=== PATIENT | female | born 1955 ===

== ENCOUNTER 2016-08-30 06:35 | Day surgery (SDC) | payer BC ==
[~2016-08-30] VITALS: Ht 154.9 cm; Wt 50.0 kg
[~2016-08-30 06:35] MED LIST: AMLO10TA82 PO; CHOL200018 PO; LACTATED RINGERS 1,000 ML IV SCH; METO-270 PO; METO25TA2 PO; MINO100T PO; NFLOSA25TA PO; SODIUM CHLORIDE FLUSH 3 ML SYR IV PRN
--- OUTSIDE RECORDS SUMMARY | 2016-08-30 06:39 | XMS REPORT | Continuity of Care Document ---
Author Author [facility] Organization [facility] Address Unknown Phone Unavailable Care Team Providers Care Clinical Science Consultant Name Role Phone Carlos Ward PCP [phone] Source Comments Some departments are not documenting in the electronic medical record. If you do not see the information that you expected, contact Release of Information in the Health Information Management department at [phone] for further assistance in locating additional records.[facility] Active Allergies and Adverse Reactions Allergen Noted Date Severity Reactions Comments Lisinopril 10/07/2015 Low COUGH Current Medications Prescription Sig. Disp. Refills Start End Date Status Date furosemide (LASIX) 40 mg Take 40 mg by mouth Active tablet daily. amLODIPine (NORVASC) 10 Take 10 mg by mouth Active mg tablet daily. atenolol (TENORMIN) 50 mg Take 50 mg by mouth Active tablet daily. losartan (COZAAR) 50 mg Take 50 mg by mouth Active tablet daily. insulin detemir(+) Inject 18 Units into Active (LEVEMIR) 100 unit/mL area(s) as directed. vandana Active Problems Problem Noted Date End stage renal disease (HCC) 11/01/2015 Hypertension 11/01/2015 DM (diabetes mellitus) type II controlled with renal manifestation (HCC) 03/2016 Most Recent Encounters Date Type Specialty Providers Description 08/29/2016 Documentation Transplant Surgery Virginia Corley 08/14/2016 Scan Only Transplant Surgery Sonia Reynoso 07/24/2016 Scan Only Transplant Surgery Sonia Reynoso 07/17/2016 Scan Only Transplant Surgery Sonia Reynoso 07/17/2016 Telephone Transplant Surgery Leida Collazo RN Kidney Evaluation 06/07/2016 Documentation Transplant Surgery Kayla Costa Social History Tobacco Use Types Packs/Day Years Used Date Never Smoker Alcohol Use Drinks/Week oz/Week Comments No quit in 2011 Last Filed Vital Signs Vital Sign Reading Time Taken Blood Pressure 140/78 10/12/2015 8:53 AM [employer] Pulse 62 10/12/2015 8:53 AM [employer] Temperature - - Respiratory Rate - - Height 1.549 m (5' 1") 10/12/2015 8:53 AM [employer] Weight 51.71 kg (114 lb) 10/12/2015 8:53 AM [employer] Body Mass Index 21.55 10/12/2015 8:53 AM [employer] Oxygen Saturation 90% 10/12/2015 8:53 AM [employer] Plan of Care Health Maintenance Due Date Last Done Comments Hepatitis C Screening 1957 Physical (Comprehensive) 1964 Exam Pertussis Vaccine 1968 Tetanus Vaccine 1974 Dilated Eye Exam 1975 Foot Exam 1975 Hba1c 1975 Microalbumin 1975 Pneumonia Vaccine (Dm) 1975 Cervical Cancer Screening 1978 Breast Cancer Screening 1997 Colorectal Cancer 2007 Screening Influenza Vaccine 04/26/2016 Results from Last 3 Months Not on file
[2016-08-30] MEDS ORDERED: LINA5TAB PO (06:49)
[2016-08-30] MEDS ORDERED: SEVE800T7 PO (06:49)
[2016-08-30 06:51] VITALS: BP_SYST 199; BP_SYST 202; BP_DIAS 82; BP_DIAS 94
[2016-08-30] MEDS ORDERED: ALFENTANIL 500 MCG/ML (ALFENTA) 5 ML AMP IV ONE (07:03)
[2016-08-30] MEDS ORDERED: MIDAZOLAM 2 MG/2 ML (VERSED) VIAL ONE (07:03)
[2016-08-30] MEDS ORDERED: PROPOFOL 20 ML IV ONE (07:03)
[2016-08-30] MEDS ORDERED: ONDANSETRON 2 MG/ML (Z0FRAN) 2 ML VIAL ONE (07:27)
[2016-08-30] MEDS ORDERED: diphenhydrAMINE 50 MG/ML INJ (BENADRYL) ONE (07:27)
[2016-08-30 08:03] VITALS: BP 146/77
--- NOTE | 2016-08-30 08:09 | Post Operative Note (E) ---
Post Op Note 08/30/16 08:07 Pre-Operative Diagnosis: Screening Post-Operative Diagnosis: Normal colon Procedure: Total colonscopy Surgeon: [facility] Fac[facility] Surveyor: None Findings: Same. Fair prep. Anesthesia: IVCS EBL: None Drains: None Specimem: Photos Complications None. Condition: Good. Op note dict #[id number] PRATEEK BOWLING MD Aug 30, 2016 08:09
[2016-08-30 08:21] VITALS: BP 187/92
[2016-08-30 09:15] VITALS: BP 149/73
--- NOTE | 2016-08-30 09:29 | OPERATIVE REPORT ---
DATE OF OPERATION: 08/30/2016 PRE-OPERATIVE DIAGNOSIS: Colon screening POST-OPERATIVE DIAGNOSIS: Normal colon OPERATIVE PROCEDURE: Total colonoscopy SURGEON: Everette Harris MD ANESTHESIA: IV conscious sedation, Monitored Anesthesia Services POSITION: Left lateral decubitus position FINDINGS: 1. Normal colon. 2. Fair prep. OPERATIVE NOTE: Following satisfactory induction of analgesia a digital rectal exam was performed. This revealed normal sphincter tone and no palpable rectal mass. Next the colonoscope was introduced per rectum and advanced under CO2 insufflation and direct vision to the cecum. The cecum was identified by the ileal cecal valve, convergence of the teniae, and transillumination and palpation of the right lower quadrant. The patient was noted to have some areas of liquid stool, which required suction and irrigation to evacuate, however, all mucosal services ultimately could be seen satisfactorily. The above areas again carefully inspected as the scope was slowly withdrawn. Retroflexed view of the rectum was normal. Excess CO2 was evacuated and the scope removed. The patient tolerated the procedure well and transferred to the recovery in stable condition. RECOMMENDATIONS: In the absence of symptoms or other criteria, the patient should have repeat screening colonoscopy in 10 years.
== END 2016-08-30 09:40 | disposition home or self-care (01) ==
LOC: ASC 06:35
PROVIDERS: ATTEND Surgery
PROC: 0DJD8ZZ Inspection of Lower Intestinal Tract, Via Natural or Artificial Opening Endoscopic (ICD-10-PCS; principal; 2016-08-30)
DX: Z12.11 Encounter for screening for malignant neoplasm of colon (principal); I13.2 Hypertensive heart and chronic kidney disease with heart failure and with stage 5 chronic kidney disease, or end stage renal disease; E11.22 Type 2 diabetes mellitus with diabetic chronic kidney disease; N18.6 End stage renal disease; Z99.2 Dependence on renal dialysis; Z04.8 Encounter for examination and observation for other specified reasons; Z79.4 Long term (current) use of insulin
CPT/HCPCS: 45378; J1200; J2250; J2405; J7120

== ENCOUNTER → 2016-09-13 | Outpatient (CLI) | payer BC ==
[~2016-09-13] MED LIST changes: -LACTATED RINGERS 1,000 ML IV SCH; +LINA5TAB PO; +SEVE800T7 PO; -SODIUM CHLORIDE FLUSH 3 ML SYR IV PRN
--- NOTE | 2016-09-13 17:25 | Diagnostic Imaging Report ---
INDICATION: Left lower extremity claudication. FINDINGS: Ankle-brachial indices on the left is 0.8. The common femoral artery is widely patent with normal triphasic flow. Superficial femoral artery shows mild atherosclerotic disease with good triphasic and biphasic flow with normal peak velocities. The distal popliteal artery shows mixed density atherosclerotic plaque causing a moderate stenosis estimated 50-70%. The posterior tibial artery shows hemodynamic plaques as well. The posterior tibial artery is monophasic in the lower leg with peak velocity of 96 cm/s. The anterior tibial artery is monophasic in flow with diffuse atherosclerotic changes. Peak velocity of 19 cm. IMPRESSION: The common femoral artery shows moderate atherosclerotic disease though no hemodynamic changes noted at this level. There is hemodynamic disease present in the distal popliteal artery as well as within the trifurcation vessels with dampened monophasic flow noted at the ankle. Dictated by: Dictated on workstation # [id number]
== END ==
LOC: RAD 13:06
PROVIDERS: ATTEND Family Medicine
DX: E11.59 Type 2 diabetes mellitus with other circulatory complications (principal); I70.292 Other atherosclerosis of native arteries of extremities, left leg
CPT/HCPCS: 93926

== ENCOUNTER → 2016-09-25 | Outpatient (CLI) | payer BC | LOC: RAD 12:53 | PROVIDERS: ATTEND Family Medicine | DX: M54.5 Low back pain (principal); M48.06 Spinal stenosis, lumbar region; M51.36 Other intervertebral disc degeneration, lumbar region | CPT/HCPCS: 72148 ==

== ENCOUNTER → 2016-10-11 | Outpatient (CLI) | payer BC ==
[~2016-10-11] MED LIST changes: -AMLO10TA82 PO; -CHOL200018 PO; -LINA5TAB PO; -METO-270 PO; -METO25TA2 PO; -MINO100T PO; -NFLOSA25TA PO; -SEVE800T7 PO; +methylPREDNISolone 80 MG/ML (DEPO MEDROL) VIAL IM ONE
== END ==
LOC: PMC 08:30
PROVIDERS: ATTEND Family Medicine
DX: M54.9 Dorsalgia, unspecified (principal); I10 Essential (primary) hypertension; Z53.09 Procedure and treatment not carried out because of other contraindication

== ENCOUNTER → 2016-10-23 | Outpatient (CLI) | payer BC | LOC: PMC 15:12 | PROVIDERS: ATTEND Family Medicine | PROC: 3E0R33Z Introduction of Anti-inflammatory into Spinal Canal, Percutaneous Approach (ICD-10-PCS; principal; 2016-10-23) | DX: M54.16 Radiculopathy, lumbar region (principal) ==

== ENCOUNTER → 2016-12-24 | Outpatient (RCR) | payer OTHER ==
[~2016-12-24] MED LIST changes: +AMLO10TA82 PO; +CHOL200018 PO; +LINA5TAB PO; +METO-270 PO; +METO25TA2 PO; +MINO100T PO; +NFLOSA25TA PO; +SEVE800T7 PO; -methylPREDNISolone 80 MG/ML (DEPO MEDROL) VIAL IM ONE
== END | disposition home or self-care (01) ==
LOC: EUOP 09-25 08:30 → EDSTATUS 08-14 13:34
PROVIDERS: ATTEND Family Medicine
DX: Z53.8 Procedure and treatment not carried out for other reasons (principal)
CPT/HCPCS: 72148